=== PATIENT | female | born 1955 | race American Indian/Alaskan Native ===

== ENCOUNTER 2019-05-11 10:44 | Outpatient (CLI) | payer OTHER ==
--- NOTE | 2019-05-11 12:08 | Mammography Report ---
BILATERAL DIGITAL DIAGNOSTIC MAMMOGRAM WITH CAD 05/11/2019 RIGHT BREAST ULTRASOUND INDICATION: Left breast pain. TECHNIQUE: Digital bilateral 2-D mammographic imaging was performed and global left breast ultrasoun d was performed. This examination was interpreted with the benefit of Computer-Aided Detection (CAD) analysis. COMPARISON: None. FINDINGS: Breast Density: The breasts are almost entirely fatty. An irregular spiculated left upper outer breast mass measures approximately 2.3 x 2.3 x 2.3 cm. There is mild architectural distortion. No suspicious calcifications. A less well-defined left retroareola r mammographic asymmetry. The right breast is negative. Ultrasound Findings: Complete sonographic evlauation of all 4 quadrants and retroareolar region was p erformed. An irregular solid hypoechoic mass at 1:30 o'clock 5 cm from the nipple measures 2.0 x 1. 6 x 2.0 cm and correlates with the mammographic mass. An oval benign cyst at 12:00 1 cm from the nipp le measures 9 x 4 mm. It correlates with the above described retroareolar mammographic asymmetry. Ult rasound of the left axilla demonstrated an abnormal lymph node with no central fat measuring 2.1 x 1. 4 x 0.9 cm. IMPRESSION: A highly suspicious 2.0 cm left breast mass at 1:30 o'clock 5 cm from the nipple and a mata spicious left axillary lymph node. Recommend ultrasound-guided needle biopsy of both. BI-RADS Category 5: Highly Suggestive of Malignancy. I discussed the findings and the recommendation for ultrasound-guided needle biopsies with the patien t at the time of the exam. A written summary of these findings will be mailed to the patient. The patient will be entered into a mammography reporting system which will generate a reminder letter for the patient's next appointmen t at the appropriate interval. FURTHER INFORMATION: According to the [employer], yearly mammograms are recommend ed starting at age 40 andandntinuing as long as a woman is in good health. Breast MRI is recommended for women with an approximately 20-25% or greater lifetime risk of breast cancer, including women wi th a strong family history of breast or ovarian cancer andAndmen who have been treated for Hodgkin's disease. Signer Name: Shivam Hinds MD Signed: 05/11/2019 12:03 PM Workstation Name: [id number]
== END 2019-05-11 10:45 | disposition home or self-care (01) ==
LOC: SPVWC 10:44
PROVIDERS: ATTEND Family Medicine
DX: N64.4 Mastodynia (principal)
CPT/HCPCS: 77066